=== PATIENT | female | born 1950 | race Caucasian/White ===

== ENCOUNTER → 2018-02-22 11:06 | Outpatient (CLI) | payer MEDICARE, OTHER, SELFPAY ==
--- NOTE | 2018-02-22 | DI.RAD.S_ITS ---
PROCEDURE: XR TOE RT MIN 2V INDICATIONS: TOE TRAUMA TECHNIQUE: 3 views of the 4th toe(s) acquired. COMPARISON: None. FINDINGS: Bones: There is a non-displaced transverse fracture involving the fourth middle phalanx. There is a surgical pin within the fifth metatarsus for internal fixation of an old fifth metatarsal base fracture. No suspicious bony lesions. Soft tissues: No suspicious soft tissue densities. Soft tissue swelling of the fourth toe. IMPRESSION: Nondisplaced transverse fracture of the fourth middle phalanx. Dictated by: Deborah Bills M.D. on 02/22/2018 at 13:13 Approved by: Deborah Bills M.D. on 02/22/2018 at 13:15
== END ==
PROVIDERS: Family Provider Family Medicine; PCP Family Medicine; Visit Provider Family Medicine
DX: S92.524A Nondisplaced fracture of middle phalanx of right lesser toe(s), initial encounter for closed fracture (principal); M79.674 Pain in right toe(s)
CPT/HCPCS: 73660

== ENCOUNTER → 2019-01-02 11:33 | Outpatient (CLI) | payer MEDICARE, OTHER, SELFPAY ==
--- NOTE | 2019-01-02 | DI.RAD.S_ITS ---
PROCEDURE: XR FOOT LT MIN 3V INDICATIONS: LEFT FOOT PAIN TECHNIQUE: 3 views of the foot were acquired. COMPARISON: None. FINDINGS: Bones: No fractures or dislocations. No suspicious bony lesions. Calcaneal spurring. Soft tissues: No tibiotalar joint effusion. Achilles tendon appears normal. IMPRESSION: No acute osseous abnormalities. If clinical symptoms persist, a repeat examination in 7-10 days, or advanced imaging such as CT or MRI is suggested for further evaluation. Dictated by: Deborah Bills M.D. on 01/02/2019 at 17:42 Approved by: Deborah Bills M.D. on 01/02/2019 at 18:37
== END ==
PROVIDERS: Family Provider Family Medicine; PCP Family Medicine; Visit Provider Family Medicine
DX: M79.672 Pain in left foot (principal)
CPT/HCPCS: 73630

== ENCOUNTER → 2020-06-23 10:55 | Outpatient (CLI) | payer MEDICARE, OTHER, SELFPAY ==
--- NOTE | 2020-06-23 12:30 | DIET.PN ---
Diabetes Intake: Initial Assessment Assess: Ms. Loyola is a 69 yof newly diagnosed with T2DM in March 2020. She was seen by her provider for elevated blood pressure and was having severe signs and symptoms of hyperglycemia. She ended up with blood sugars in the 600?s. She has gone through a lot stress with separation from , father passing away around a year ago. She admits to turning to food and alcohol over the last 2 years for stress relief. Since diagnosis she has been trying modified Keto and monitoring blood sugar 1-2 x/day. Labs: Per pt report: A1c: 11.8 Meds: metformin 1000mg BID Diet: per 24 hr recall: B: harper, naan, egg L: tuna sandwich; leftovers D: usually skips (not hungry) Sn: yogurt; marbin crackers, butter Wt: 145lb Ht: 64in BMI: 24.8 BP: DX: Altered nutrition related laboratory values related to impaired glucose metabolism, lack of previous exposure to nutrition information as evidenced by pt report, diagnosis of diabetes, previous diet high in refined carbohydrates. Intervention: 1. Completed intake assessment. Discussed barriers to care. 2. Discussed pathophysiology of diabetes. Reviewed A1c and its correlation to blood glucose numbers. Discussed recommended BG ranges. 3. Discussed importance of self-monitoring, how often, and when to check. 4. Reviewed hyper/hypoglycemia and treatment. 5. Reviewed safe disposal of equipment (strip/lancets/insulin needles). 6. Created SMART goals for pt self-care and success. 7. Discussed program curriculum outline and class needs based on individual goals. SMART Goals: 1. Pt goal A1c <7.0 through dietary changes including regular meal times, portion control, carb counting, and including protein with each meal and snack. Monitor/Evaluate: Pt will attend full DSME program. Basic Nutrition class scheduled for July 13.
== END ==
PROVIDERS: Family Provider Family Medicine; PCP Family Medicine; Referring Provider Family Medicine; Visit Provider Family Medicine
DX: E11.9 Type 2 diabetes mellitus without complications (principal); Z79.84 Long term (current) use of oral hypoglycemic drugs
CPT/HCPCS: G0108

== ENCOUNTER → 2020-07-06 10:04 | Outpatient (CLI) | payer MEDICARE, OTHER, SELFPAY ==
--- NOTE | 2020-07-06 12:12 | DIET.PN ---
Diabetes Exercise/Lifestyle change: 1. Importance of exercise 2. FITT (frequency, intensity, time, type) 3. Strength training tips and guidelines 4. Glucose monitoring/ranges before and after a. Carbohydrate needs based on glucose ranges and duration/intensity of exercise b. Rule of 15 5. Proper foot attire 6. Developing strategies for behavior change 7. SMART Goal Setting 8. Home exercise routine demonstration (as a class)
== END ==
PROVIDERS: Family Provider Family Medicine; PCP Family Medicine; Referring Provider Family Medicine; Visit Provider Family Medicine
DX: E11.9 Type 2 diabetes mellitus without complications (principal); Z71.3 Dietary counseling and surveillance
CPT/HCPCS: G0109

== ENCOUNTER → 2020-07-13 09:54 | Outpatient (CLI) | payer MEDICARE, OTHER, SELFPAY ==
--- NOTE | 2020-07-13 11:21 | DIET.PN ---
Diabetes: Healthy Eating 1 Intervention: ? Discussed pathophysiology of diabetes and impact of nutrition/diet on blood sugar control.? Discussed fed versus non-fed state.?? ? Reviewed importance of Balance, Variety, and Moderation. ? Discussed the effect of carbohydrates/protein/fat on blood sugar control.? ? Stressed importance of consistent carbohydrate intake at each meal and provided instructions for recommended servings/portions of carbohydrates/protein per meal. Provided educational material. ? Reviewed carbohydrate counting and measuring carbohydrate content via serving sizes and reading nutrition labels.? Provided handouts.?? ? Discussed the difference between simple versus complex carbohydrates and the effect of fiber on blood sugar control.? Discussed various methods to increase fiber content in diet. ? Discussed the plate method for creating more carbohydrate conscious balanced meals. ? Stressed importance of meal timing and not going >4-5 hours between meals. Encouraged adding protein to evening snack to support glucose control overnight. ? Discussed importance of making dietary habits part of lifestyle change.
== END ==
PROVIDERS: Family Provider Family Medicine; PCP Family Medicine; Referring Provider Family Medicine; Visit Provider Family Medicine
DX: E11.9 Type 2 diabetes mellitus without complications (principal); Z71.3 Dietary counseling and surveillance
CPT/HCPCS: G0109

== ENCOUNTER → 2020-07-20 10:10 | Outpatient (CLI) | payer MEDICARE, OTHER, SELFPAY ==
--- NOTE | 2020-07-20 11:48 | DIET.PN ---
Diabetes: Healthy Eating 2 Intervention: Fats effects on glucose, weight, heart disease, cholesterol Sat Vs Unsat Protein- animal and plant based options Low, med, high fat meats Sugar substitutes Sodium Health claims Grocery shopping guidelines Eating away from home Alcohol Sick day guidelines Ketone Testing
== END ==
PROVIDERS: Family Provider Family Medicine; PCP Family Medicine; Referring Provider Family Medicine; Visit Provider Family Medicine
DX: E11.9 Type 2 diabetes mellitus without complications (principal); Z71.3 Dietary counseling and surveillance
CPT/HCPCS: G0109

== ENCOUNTER → 2020-07-27 09:55 | Outpatient (CLI) | payer MEDICARE, OTHER, SELFPAY ==
--- NOTE | 2020-07-27 13:08 | DIET.PN ---
Diabetes Physiology: Intervention 1. Diabetes physiology 2. Detecting and treatment of acute and chronic complications 3. Diagnosis of and difference in types of diabetes 4. Self-monitoring and pattern management a. Demonstrate glucometer and control testing b. Explain BG results and action to take when out of range. 5. Foot , eye, dental care 6. Medications a. Oral medication classification b. Injectable c. Insulin i. Injection protocol ii. Other delivery methods
== END ==
PROVIDERS: Family Provider Family Medicine; PCP Family Medicine; Referring Provider Family Medicine; Visit Provider Family Medicine
DX: E11.9 Type 2 diabetes mellitus without complications (principal); Z71.3 Dietary counseling and surveillance
CPT/HCPCS: G0109

== ENCOUNTER → 2020-08-04 14:08 | Outpatient (CLI) | payer MEDICARE, OTHER, SELFPAY ==
--- NOTE | 2020-08-04 14:56 | DIET.PN ---
Diabetes Follow Up Assess: Ms. Loyola is a 69 yof who completed the DSME program and seen for 3 mo follow up visit. She has made many dietary changes and has been exercising daily. She is happy to report with the support of her they have both reduced their a1c through improved lifestyle habits. Labs: A1c: 7.6 Meds: metf: 1000mg BID Dietary changes: cut out sugar, reduced portions, more regular meal patterns Ht: 64in Wt: 143lb BMI: 24 Nutrition DX: Altered nutrition related laboratory values related to impaired glucose metabolism, lack of previous exposure to nutrition information as evidenced by pt report, diagnosis of diabetes, previous diet high in refined carbohydrates. Intervention: 1. Completed follow up assessment. Reviewed barriers to care. 2. Reviewed new labs and importance of continued BG monitoring. 3. Reviewed SMART goals and made modifications where appropriate including wt management, activity, and A1c goals. 4. Discussed plan for ongoing support. Provided information for continued support and success. SMART goals: 1. Continue to lower A1c through improved lifestyle habits. Monitor/Evaluate: Pt will follow up in 3 mo to discuss new labs and barriers to care.
== END ==
PROVIDERS: Family Provider Family Medicine; PCP Family Medicine; Referring Provider Family Medicine; Visit Provider Family Medicine
DX: E11.9 Type 2 diabetes mellitus without complications (principal)
CPT/HCPCS: G0109

== ENCOUNTER → 2020-08-12 09:04 | Outpatient (CLI) | payer MEDICARE, OTHER, SELFPAY ==
--- NOTE | 2020-08-12 | DI.US.S_ITS ---
PROCEDURE: US ABDOMEN COMPLETE INDICATIONS: PAIN TECHNIQUE: Real-time scanning was performed of the abdominal and retroperitoneal organs, with image documentation. COMPARISON: None. FINDINGS: Liver: Liver is normal in size and homogeneous in echotexture. Gallbladder: No findings of gallstones or sludge are seen. The gallbladder wall is not thickened, measuring 3 mm or less. No specific pericholecystic fluid is seen. The sonographic Haji sign is negative. Biliary ducts: Intrahepatic bile ducts are non-dilated. Extrahepatic bile duct caliber measures 5 mm. Normal is 6-7 mm or less in diameter, or 10 mm or less post-cholecystectomy. Pancreas: Visualized portions of the pancreas are sonographically normal. Spleen: Spleen is normal in size and homogeneous in echotexture. Kidneys: Kidneys are normal in size and echotexture. Right kidney measures 10.5 cm long; left kidney measures 11 cm long. No hydronephrosis or nephrolithiasis. No solid masses. The superior pole of the left kidney, there is a simple cyst seen that measures up to 2.1 cm. Aorta: Visualized aorta is normal in caliber at less than 3 cm. Iliacs: Proximal common iliac arteries are normal in caliber at less than 2.5 cm. IVC: Intrahepatic inferior vena cava is patent. Miscellaneous: No free abdominal fluid. Anterior to the mid/distal inferior vena cava and to the left of the aorta on several images, there is a hypoechoic solid nonvascular mass that measures 3 x 2 x 2.8 cm. IMPRESSION: 3 cm nonvascular retroperitoneal mass, which may relate to enlarged lymph nodes. When clinically appropriate, a dedicated CT of the abdomen and pelvis with at least IV contrast is recommended for further evaluation. The gallbladder demonstrates a normal sonographic appearance. No biliary dilatation is seen. Simple appearing left renal cyst incidentally noted. Dictated by: Lai Del Valle M.D. on 08/12/2020 at 10:39 Approved by: Lai Del Valle M.D. on 08/12/2020 at 10:42
== END ==
PROVIDERS: Family Provider Family Medicine; PCP Family Medicine; Referring Provider Family Medicine; Visit Provider Family Medicine
DX: R10.9 Unspecified abdominal pain (principal); R19.09 Other intra-abdominal and pelvic swelling, mass and lump; N28.1 Cyst of kidney, acquired
CPT/HCPCS: 76700

== ENCOUNTER → 2020-08-18 11:29 | Outpatient (CLI) | payer MEDICARE, OTHER, SELFPAY ==
--- NOTE | 2020-08-18 12:32 | DI.CT.S_ITS ---
PROCEDURE: CT ABDOMEN PELVIS W CON INDICATIONS: Unspecified abdominal pain. Abnormal US TECHNIQUE: After the administration of oral and intravenous contrast, 5 mm thick sections acquired from the diaphragms to the symphysis. 5 mm thick coronal and sagittal reformats were performed. For radiation dose reduction, the following was used: automated exposure control, adjustment of mA and/or kV according to patient size. COMPARISON: [facility], US, US ABDOMEN COMPLETE, 08/12/2020, 9:15. FINDINGS: Image quality: Excellent. ABDOMEN: Lung bases: Lung bases are clear. Heart size is normal. Solid organs: Liver is normal in size and enhancement. Gallbladder is normal. Biliary system is non-dilated. Pancreas enhances normally. Spleen is normal in size and enhancement. No adrenal nodules. Kidneys are normal in size and enhancement, without hydronephrosis. There is a 2.2 cm simple cyst in the left kidney. Peritoneum and bowel: Stomach, small bowel, and colon loops are normal in caliber and wall thickness. There are scattered colonic diverticula. Moderate amount stool in colon. No free fluid or air. Nodes and vessels: There is a mass in the mesenteric root measuring 2.3 x 2.7 x 4.1 cm. Central hypodensity in the mass is likely secondary to necrosis. No retroperitoneal adenopathy by size criteria. Aorta and inferior vena cava are normal in caliber. Miscellaneous: There is a small fat containing umbilical hernia. PELVIS: Genitourinary: Bladder wall thickness is normal. Uterus is absent. Ovaries are unremarkable. No free fluid in pelvis. Miscellaneous: No inguinal hernias or adenopathy. Bones: No suspicious bony lesions. No vertebral body compression fractures. IMPRESSION: 1. 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 Please correlate with neuroendocrine tumor markers. Oncology consultation is recommended. If clinically indicated, Cu-64 dodatate PET may be helpful for further evaluation. 2. Diverticulosis without diverticulitis. 3. A 2.2 cm simple cyst in the left kidney. Dictated by: Deborah Bills M.D. on 08/18/2020 at 16:45 Approved by: Deborah Bills M.D. on 08/18/2020 at 17:21
--- NOTE | 2020-08-30 13:27 | ONC.MSW ---
Description: New Referral Navigation T/C Reason for Referral: Retroperitoneal Mass Activity: Called pt to confirm that we've received her referral from Dr. Fall. Pt was just recently dx with a retroperitoneal mass by CT imaging. In calling her, pt presents as guarded, hesitant to discuss her referral. MARITIME ENGINEER reiterated that the referral is from Dr. Fall, who is wanting her to see the Oncologist for further staging w/u and to determine a definitive diagnosis. She stated, I don't want to come until sometime in October. MARITIME ENGINEER asked why she was delaying tx, she said, because I don't want to come in. She further shared that Dr. Fall told me it was a slow-growing tumor, so I'm not worried about it. No biopsy has been done as of yet. MARITIME ENGINEER expressed further concerns about delaying tx, and tried to help educate pt that her cancer has not been diagnosed, and that it will continue to grow without tx, however, she remained adamant that she was not interested in coming for a consult until mid-October. Confirmed a time for 10/20 at 11:00am, per her request. MARITIME ENGINEER called Dr. Fall's office and left a message to call back re: the status of this referral.
== END ==
PROVIDERS: Family Provider Family Medicine; PCP Family Medicine; Referring Provider Family Medicine; Visit Provider Family Medicine
DX: K68.9 Other disorders of retroperitoneum (principal); R10.9 Unspecified abdominal pain; N28.1 Cyst of kidney, acquired; K57.90 Diverticulosis of intestine, part unspecified, without perforation or abscess without bleeding
CPT/HCPCS: 74177

== ENCOUNTER → 2021-05-13 12:26 | Outpatient (CLI) | payer MEDICARE, OTHER, SELFPAY | PROVIDERS: PCP Family Medicine; Visit Provider Physician Assistant | DX: N34.3 Urethral syndrome, unspecified (principal) | CPT/HCPCS: 87077; 87086; 87186 ==

== ENCOUNTER → 2022-03-03 13:08 | Outpatient (CLI) | payer MEDICARE, OTHER, SELFPAY ==
[2022-03-03 14:20] LABS: Influenza A - CEPHEID Flu A NEGATIVE (NEGATIVE); Influenza B - CEPHEID Flu B NEGATIVE (NEGATIVE); Respiratory Syncytial Virus Negative (Negative)
[2022-03-03 14:23] LABS: COVID-19 CEPHEID 4-PLEX PCR Negative (Negative)
== END ==
PROVIDERS: PCP Family Medicine; Visit Provider Physician Assistant
DX: R05.1 Acute cough (principal)
CPT/HCPCS: 0241U

== ENCOUNTER → 2023-08-16 11:06 | Outpatient (CLI) | payer MEDICARE, OTHER, SELFPAY ==
--- NOTE | 2023-08-16 | DI.RAD.S_ITS ---
PROCEDURE: XR BONE LENGTH SCANOGRAM INDICATIONS: Unequal limb length (acquired), unspecified site TECHNIQUE: A single frontal standing view of both lower extremities acquired, with measuring ruler situated between the legs. COMPARISON: None. FINDINGS: Right: Total leg length is 80.9 cm. Chronic deformity of the mid tibia diaphysis, traversing a healed fracture. Left: Total leg length is 83.5 cm. No displaced fracture in either lower extremity. Joint space of bilateral hips and bilateral new grossly well maintained. IMPRESSION: Lower extremity discrepancy as described above. Chronic deformity of the right mid tibia diaphysis . Dictated by: Krista Hand M.D. on 08/16/2023 at 12:57 Approved by: Krista Hand M.D. on 08/16/2023 at 13:01
== END ==
LOC: RAD 11:11
PROVIDERS: PCP Internal Medicine; Referring Provider Internal Medicine; Visit Provider Internal Medicine
DX: M21.761 Unequal limb length (acquired), right tibia (principal)
CPT/HCPCS: 77073

== ENCOUNTER → 2023-10-26 12:15 | Outpatient (CLI) | payer MEDICARE, OTHER, SELFPAY ==
--- NOTE | 2023-10-26 12:18 | DI.RAD.S_ITS ---
PROCEDURE: XR KNEE LT 3V INDICATIONS: Left knee injury TECHNIQUE: 3 views of the knee were acquired. COMPARISON: None. FINDINGS: Bones: No fractures or dislocations. No suspicious bony lesions. Soft tissues: No joint effusion. No suspicious soft tissue calcifications. IMPRESSION: No acute bony abnormality or significant effusion. Dictated by: Leander Lira M.D. on 10/26/2023 at 13:41 Approved by: Leander Lira M.D. on 10/26/2023 at 13:41
--- NOTE | 2023-10-26 12:18 | DI.RAD.S_ITS ---
PROCEDURE: XR KNEE RT 3V INDICATIONS: Right knee injury TECHNIQUE: 3 views of the knee were acquired. COMPARISON: [facility], CR, XR KNEE LT 3V, 10/26/2023, 11:37. FINDINGS: Bones: No fractures or dislocations. No suspicious bony lesions. There is a small ovoid calcific radiodensity just above the tibial spines smoothly marginated, measuring up to 6 mm. This could represent an intra-articular loose body. Soft tissues: No joint effusion. No suspicious soft tissue calcifications. IMPRESSION: No acute bony abnormality or significant effusion. Suspect intra-articular loose body measuring up to 6 mm at the knee joint just above the tibial spines. This appears. Dictated by: Leander Lira M.D. on 10/26/2023 at 13:42 Approved by: Leander Lira M.D. on 10/26/2023 at 13:44
== END ==
PROVIDERS: PCP Internal Medicine; Referring Provider Registered Nurse; Visit Provider Registered Nurse
DX: M25.562 Pain in left knee (principal); M25.561 Pain in right knee
CPT/HCPCS: 73562